=== PATIENT | female | born 1960 | race Two or more races ===

== ENCOUNTER 2025-09-30 09:48 | Emergency (ER) | payer MEDICARE, SELFPAY ==
[2025-09-30 10:06] VITALS: BP 141/79; PULSE 80; RESP 16; TEMP 36.8; O2SAT 97; BMI 35.8
--- NOTE | 2025-09-30 10:20 | XR_ITS ---
Examination: Foot, left, 3 views Technique: AP, oblique, lateral views foot, 3 views Date and time of exam: September 30, 2025, 10:26 a.m. INDICATIONS: Injury to the foot 1 month ago, foot pain. FINDINGS: Comminuted fractures base proximal phalanx third digit Periosteal new bone along the mid shaft of the proximal phalanx No opaque foreign bodies IMPRESSION: Comminuted mildly displaced fractures base proximal phalanx third digit
--- NOTE | 2025-09-30 10:56 | PD.EDANKLE ---
Lower Extremity Injury RME/HPI General Chief Complaint: Ankle/Foot Injury Stated Complaint: LEFT FOOT PAIN S/P INJURY Time Seen by Provider: 09/30/25 09:50 Arrival date/time: 09/30/25 09:48 65-year-old female presents to the emergency department today for complaints of foot injury approximately 2 to 3 weeks ago patient reports pain and swelling to the toes of the left foot patient reports he is able to walk but it is painful patient is swelling of the left third digit Limitations: no limitations Related Data Allergies Allergy/AdvReac Type Severity Reaction Status Date / Time NKA* Allergy Uncoded 09/30/25 09:49 Review of Systems Review of Systems Systems Reviewed: All systems reviewed, normal except as documented Constitutional Constitutional: Reports system reviewed and no additional complaints, except as documented, Denies fever(s) and Denies headache(s) Eyes Eyes: Reports system reviewed and no additional complaints, except as documented and Denies blurry vision ENT Ears, Nose, Mouth, and Throat: Reports system reviewed and no additional complaints, except as documented, Denies headache(s), Denies nasal congestion and Denies nasal discharge Cardiovascular Cardiovascular: Reports system reviewed and no additional complaints, except as documented, Denies chest pain and Denies dyspnea Respiratory Respiratory: Reports system reviewed and no additional complaints, except as documented, Denies chest congestion, Denies cough and Denies dyspnea Gastrointestinal Gastrointestinal: Reports system reviewed and no additional complaints, except as documented and Denies abdominal pain Musculoskeletal Musculoskeletal: Reports system reviewed and no additional complaints, except as documented, Reports abnormal gait, Reports arthralgias (Left foot pain) and Denies deformity Integumentary/Breasts Skin/Breast: Reports system reviewed and no additional complaints, except as documented and Denies rash Neurologic Neurologic: Reports system reviewed and no additional complaints, except as documented, Reports as per HPI, Reports abnormal gait and Denies headache(s) Past Medical History Social History SMOKING STATUS: Never smoker ED Exam General Limitations: Present no limitations General appearance: Present alert and in no apparent distress Head Head exam: Present atraumatic Eye Eye exam: Present normal appearance, PERRL and EOMI ENT ENT exam: Present normal exam, normal oropharynx and mucous membranes moist Neck Neck exam: Present normal inspection, full ROM and trachea midline Chest Chest inspection: Present normal inspection and symmetric chest wall rise Respiratory Respiratory exam: Present normal lung sounds bilaterally Cardiovascular Cardiovascular exam: Present regular rate, normal rhythm and normal heart sounds Abdominal Exam Abdominal exam: Present soft and normal bowel sounds Extremities Exam Extremities exam: Present full ROM, tenderness, normal capillary refill and joint swelling (Left foot pain 3rd and 4th digits) Back Exam Back exam: Present normal inspection and full ROM Neurological Exam Neurological exam: Present alert, oriented X3 and CN II-XII intact Psychiatric Psychiatric exam: Present normal affect and normal mood Skin Skin exam: Present warm, dry, intact and normal color Course Quality Measures none Orders Category Date Time Status Splint / Immobilizer STAT Care 09/30/25 10:56 Completed XR foot comp LT min 3V Stat Exams 09/30/25 10:20 Completed Vital Signs Vital signs: Vital Signs Temperature 98.2 F 09/30/25 10:06 Pulse Rate 80 09/30/25 10:06 Respiratory Rate 16 09/30/25 10:06 Blood Pressure 141/79 H 09/30/25 10:06 Pulse Oximetry (%) 97 09/30/25 10:06 Oxygen Delivery Method Room Air 09/30/25 10:06 O2 saturation 97% room air with normal limits Extremity Injury, Lower MDM Narrative MDM Narrative:: 65-year-old female presents to the emergency department today for complaints of foot injury approximately 2 to 3 weeks ago patient reports pain and swelling to the toes of the left foot patient reports he is able to walk but it is painful patient is swelling of the left third digit On exam patient well-appearing does not appear look toxic Patient does have mild bruising and swelling to the forefoot of the left foot Imaging obtained patient does have fracture of the toe Patient placed in a splint/boot here in the emergency department Patient instructed to follow-up with orthopedist soon as possible for worsening symptoms return immediately patient is instructed and remain nonweightbearing Patient data External records reviewed:: [facility] previous records Clinical information provided by:: patient Social determinants that could affect healthcare access:: none Patient has the following chronic illnesses:: See history How is presenting disease/condition affected by chronic disease/condition?: no chronic disease Evaluation data The following diagnostics were reviewed and interpreted by me:: radiology exam(s) Lab and/or radiology exams considered but not ordered:: Radiology obtained Interpretation Summary: FINDINGS: Comminuted fractures base proximal phalanx third digit Periosteal new bone along the mid shaft of the proximal phalanx No opaque foreign bodies IMPRESSION: Comminuted mildly displaced fractures base proximal phalanx third digit Dictated By: Bharath Harding MD Medications / Prescriptions Medications or Prescriptions considered but not ordered:: Given Medication administrations:: Given Consultations Consultation(s) initiated? (list below): No Diagnosis Extremity Injury, Lower Differential Diagnosis: other (No fracture, toe sprain) Most likely diagnosis given after review of the tests above:: Toe fracture Admission Indicated Admission indicated?: not indicated Admission Request Was there a request for admission?: No Disposition Plan Disposition Plan: Discharge Discharge Attestation Discharge Attestation: The patient and all family members were given an opportunity to ask questions and understood the discharge instructions. Discharge instructions specifically effects, indications for sooner follow up or return to the emergency department, and the expected course of current diagnosis. Patient condition: Stable Discharge Plan Plan Patient Disposition: HOME (Self Care) Discharge Disposition comment: Stable Prescriptions/Referrals Referrals: Palmer Phan MD [Primary Care Provider, Family Practice] - In 1 week Problem List Clinical Impression: Fracture of toe of left foot Patient/Caregiver Discharge Instructions Education Materials: [employer] [facility] Additional Instructions: Please follow up with your primary care doctor in the next 24-48hrs for any worsening symptoms return here immediately Print Language: Vietnamese Stand Alone Forms: Lori Award Info., Patient Portal Info Letter GABY/ANGELIC Supervising Physician GABY/ANGELIC Supervising Physician: Dr. cat
== END 2025-09-30 11:26 | disposition home or self-care (01) ==
PROVIDERS: Emergency Provider Nurse Practitioner Primary Care; PCP Family Medicine
DX: S92.912A Unspecified fracture of left toe(s), initial encounter for closed fracture (principal); W22.8XXA Striking against or struck by other objects, initial encounter
CPT/HCPCS: 29515; 73630; 99282